=== PATIENT | female | born 1940 | race African-American/Black ===

== ENCOUNTER → 2018-12-02 | Emergency (ER) | payer MEDICARE, MEDICAID ==
[~2018-12-02] VITALS: Ht 165.1 cm; Wt 69.0 kg
[~2018-12-02] MED LIST: ASPIRIN 81MG TABLET PO ONE; ATEN50TA PO; CLOP75TA4 PO; DEXL60CA3 PO; DOCU-138 PO; SIMV40TA2 PO
[2018-12-03 00:08] VITALS: BP 113/66
[2018-12-03 01:24] LABS: CHLORIDE 107 mEq/L (98-107)
[2018-12-03 01:32] LABS: BASOPHILS % 0.9 % (0.0-2.0); EOSINOPHILS % 3.9 % (0.0-5.0); HEMATOCRIT. 34.7 % (36.0-48.0); HEMOGLOBIN. 11.8 g/dL (12.0-16.0); LYMPHOCYTES % 40.6 % (20.0-50.0); MEAN CORPUSCULAR HEMOGLOBIN 31.1 pg (28.0-32.0); MEAN CORPUSCULAR VOLUME 91.8 fL (81.0-99.0); MEAN PLATELET VOLUME 9.9 fl (7.4-10.4); MONOCYTES % 7.1 % (2.0-8.0); NEUTROPHILS % 47.5 % (40.0-76.0); PLATELET 201 x1000/uL (130-400); RED BLOOD CELL COUNT 3.78 mill/uL (4.2-5.4); RED CELL DISTRIBUTION WIDTH 15.3 % (11.6-14.6)
== END | disposition home or self-care (01) ==
LOC: ER 23:56 → CANBEDREQ 12-03 17:03
DX: R07.9 Chest pain, unspecified (principal); R10.9 Unspecified abdominal pain; I10 Essential (primary) hypertension; Z88.0 Allergy status to penicillin; Z88.6 Allergy status to analgesic agent; Z95.1 Presence of aortocoronary bypass graft
CPT/HCPCS: 99284

== ENCOUNTER 2019-08-07 12:32 | Inpatient (IN) | payer MEDICARE, MEDICAID ==
[~2019-08-07] VITALS: Ht 172.7 cm; Wt 76.7 kg
[~2019-08-07 12:32] MED LIST changes: -ASPIRIN 81MG TABLET PO ONE
[2019-08-07] MEDS ORDERED: LEVETIRACETAM 1000MG/100ML 100 ML IV ONE (12:45)
[2019-08-07 13:05] LABS: BASOPHILS % 0.4 % (0.0-2.0); EOSINOPHILS % 0.4 % (0.0-5.0); HEMOGLOBIN. 13.7 g/dL (12.0-16.0); LYMPHOCYTES % 18.6 % (20.0-50.0); MEAN CORPUSCULAR HEMOGLOBIN 31.2 pg (28.0-32.0); MEAN CORPUSCULAR VOLUME 93.1 fL (81.0-99.0); MEAN PLATELET VOLUME 8.9 fl (7.4-10.4); MONOCYTES % 5.4 % (2.0-8.0); NEUTROPHILS % 75.2 % (40.0-76.0); PLATELET 242 x1000/uL (130-400); RED BLOOD CELL COUNT 4.41 mill/uL (4.2-5.4)
[2019-08-07 13:13] LABS: CHLORIDE 108 mEq/L (98-107)
[2019-08-07 13:18] LABS: ETHANOL BLOOD < 10 mg/dL
[2019-08-07] MEDS ORDERED: DIPHENHYDRAMINE 50MG/ML VIAL IV PRN (16:30)
[2019-08-07] MEDS ORDERED: LORAZEPAM 2MG/ML CPJ IV PRN (16:30)
[2019-08-07] MEDS ORDERED: ACETAMINOPHEN 325MG TABLET PO PRN ×2 (16:30)
[2019-08-07] MEDS ORDERED: ONDANSETRON HCL 4MG/2ML INJ IV PRN (16:30)
[2019-08-07] MEDS ORDERED: MAGNESIUM/ALUMINUM HYDROXIDE/SIMETHICONE 30ML UDC PO PRN (16:30)
[2019-08-07] MEDS ORDERED: CLONIDINE 0.1MG TABLET PO PRN (16:30)
[2019-08-07 17:00] VITALS: BP 104/52
[2019-08-07] MEDS: DEXT 5%/0.45% NACL 1000ML 1,000 ML IV SCH (18:05)
[2019-08-07 18:24] VITALS: BP 104/52
[2019-08-07 20:00] VITALS: BP 116/62
[2019-08-07] MEDS ORDERED: POTASSIUM CHLORIDE INJ 40 MEQ in DEXT 5% WATER 500 ML IV NR (20:00)
[2019-08-07] MEDS: LEVETIRACETAM 500MG PREMIX 100 ML IV SCH (21:13)
[2019-08-07] MEDS ORDERED: OLAN2.5T3 MT (21:53)
[2019-08-07] MEDS ORDERED: POTA10TA20 MT (21:53)
[2019-08-07] MEDS ORDERED: ZONI50CA MT (21:53)
[2019-08-07] MEDS ORDERED: RIVA20TA MT (21:53)
[2019-08-07] MEDS ORDERED: COLC0.6C3 MT (21:53)
[2019-08-07] MEDS ORDERED: SIMV-46 MT (21:53)
[2019-08-07] MEDS ORDERED: ATEN-42 MT (21:53)
[2019-08-07] MEDS ORDERED: PROT40 MT (21:53)
[2019-08-07] MEDS ORDERED: CHOL200077 PO (21:57)
[2019-08-08] VITALS: BP 120/68
[2019-08-08 04:00] VITALS: BP 109/54
[2019-08-08 06:06] LABS: HEMATOCRIT. 40.4 % (36.0-48.0); HEMOGLOBIN. 13.7 g/dL (12.0-16.0); MEAN CORPUSCULAR HEMOGLOBIN 31.4 pg (28.0-32.0); MEAN CORPUSCULAR VOLUME 92.2 fL (81.0-99.0); MEAN PLATELET VOLUME 9.7 fl (7.4-10.4); PLATELET 187 x1000/uL (130-400); RED BLOOD CELL COUNT 4.38 mill/uL (4.2-5.4); RED CELL DISTRIBUTION WIDTH 14.5 % (11.6-14.6)
[2019-08-08] MEDS: DEXT 5%/0.45% NACL 1000ML 1,000 ML IV SCH (06:22)
[2019-08-08 06:49] LABS: CHLORIDE 109 mEq/L (98-107)
[2019-08-08 08:00] VITALS: BP 137/67
[2019-08-08] MEDS: LEVETIRACETAM 500MG PREMIX 100 ML IV SCH ×2 (08:59→21:27)
[2019-08-08] MEDS: FAMOTIDINE 20MG/2ML VIAL IV SCH (08:59)
[2019-08-08 10:52] LABS: PLATELET ESTIMATE NORMAL
[2019-08-08 12:00] VITALS: BP 107/61
[2019-08-08] MEDS ORDERED: ASPIRIN 81MG TABLET PO SCH (12:00)
[2019-08-08 16:00] VITALS: BP 139/75
[2019-08-08 20:00] VITALS: BP 103/68
[2019-08-08] MEDS ORDERED: ATORVASTATIN CALCIUM 20MG TABLET PO SCH (21:00)
[2019-08-09] VITALS: BP 120/54
[2019-08-09 04:00] VITALS: BP 133/79
[2019-08-09 08:00] VITALS: BP 136/65
[2019-08-09] MEDS ORDERED: OLANZAPINE 2.5MG TABLET PO SCH (09:00)
[2019-08-09] MEDS: FAMOTIDINE 20MG/2ML VIAL IV SCH (10:14)
[2019-08-09] MEDS: LEVETIRACETAM 500MG PREMIX 100 ML IV SCH (10:14)
[2019-08-09 12:00] VITALS: BP 122/69
[2019-08-09 17:24] VITALS: BP 100/67
== END 2019-08-09 18:15 | disposition home or self-care (01) | DRG 101 ==
LOC: ER 12:42 → 7WST 13:54 → ENRESERV 15:45
PROVIDERS: ADMIT Internal Medicine; ATTEND Internal Medicine
DX: G40.901 Epilepsy, unspecified, not intractable, with status epilepticus (principal); R47.01 Aphasia; Z86.73 Personal history of transient ischemic attack (TIA), and cerebral infarction without residual deficits; I10 Essential (primary) hypertension; I25.10 Atherosclerotic heart disease of native coronary artery without angina pectoris; E78.00 Pure hypercholesterolemia, unspecified; M13.0 Polyarthritis, unspecified; E78.5 Hyperlipidemia, unspecified; F91.9 Conduct disorder, unspecified; F03.90 Unspecified dementia, unspecified severity, without behavioral disturbance, psychotic disturbance, mood disturbance, and anxiety; M79.7 Fibromyalgia; Z95.1 Presence of aortocoronary bypass graft; Z79.899 Other long term (current) drug therapy; Z88.5 Allergy status to narcotic agent; Z88.0 Allergy status to penicillin; Z79.82 Long term (current) use of aspirin
CPT/HCPCS: 36415; 70551; 80048; 80053; 80320; 82542; 83735; 85025; 93306; 93970; 95816; 97162; 99285; J1953; J2060; J3480; J3490; J7060; G0480